=== PATIENT | female | born 1975 ===

== ENCOUNTER 2019-12-17 11:31 | Emergency (ER) | payer SELFPAY ==
[~2019-12-17] VITALS: Ht 170.2 cm; Wt 59.1 kg
[2019-12-17 11:56] VITALS: BP 131/78
[2019-12-17] MEDS ORDERED: ibuprofen tablet 400 MG TABLET PO ONE (12:40)
[2019-12-17] MEDS ORDERED: IBUP-1984 PO (13:02)
== END 2019-12-17 13:00 | disposition home or self-care (01) ==
LOC: ER 11:32
DX: M77.00 Medial epicondylitis, unspecified elbow (principal); H92.09 Otalgia, unspecified ear; R51 Headache; R42 Dizziness and giddiness
CPT/HCPCS: 99282